=== PATIENT | female | born 1980 | race American Indian/Alaskan Native ===

== ENCOUNTER 2017-10-11 08:34 | Emergency (ER) | payer MEDICAID ==
[2017-10-11 08:45] VITALS: BP 127/76
[2017-10-11] MEDS ORDERED: MOTRIN PO ONE (10:48)
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
== END 2017-10-11 14:00 | disposition home or self-care (01) ==
LOC: ED 08:34
DX: S39.012A Strain of muscle, fascia and tendon of lower back, initial encounter (principal); S13.4XXA Sprain of ligaments of cervical spine, initial encounter; M25.562 Pain in left knee; D64.9 Anemia, unspecified; V89.2XXA Person injured in unspecified motor-vehicle accident, traffic, initial encounter; Y93.89 Activity, other specified; Y92.89 Other specified places as the place of occurrence of the external cause; Y99.8 Other external cause status
CPT/HCPCS: 99283

== ENCOUNTER 2017-12-05 23:36 | Emergency (ER) | payer MEDICAID ==
[2017-12-05 23:42] VITALS: BP 129/69
== END 2017-12-06 05:21 | disposition left against medical advice (07) ==
LOC: ED 23:36
DX: M79.644 Pain in right finger(s) (principal); Z53.21 Procedure and treatment not carried out due to patient leaving prior to being seen by health care provider

== ENCOUNTER 2017-12-10 09:20 | Emergency (ER) | payer MEDICAID ==
[2017-12-10 09:31] VITALS: BP 121/81
== END 2017-12-10 12:10 | disposition left against medical advice (07) ==
LOC: ED 09:20
DX: Z53.21 Procedure and treatment not carried out due to patient leaving prior to being seen by health care provider (principal)

== ENCOUNTER 2018-12-08 07:24 | Emergency (ER) | payer MEDICAID ==
[2018-12-08 07:37] VITALS: BP 130/79
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
[2018-12-08] MEDS ORDERED: TORADOL IM ONE (07:57)
--- NOTE | 2018-12-08 08:46 | XRay Report ---
LEFT SHOULDER RADIOGRAPHS INDICATION: Pain. COMPARISON: None similar. FINDINGS: Frontal and Y views of the left shoulder, 3 projections demonstrate normal humeral head contour, well positioned against the glenoid. Normal acromioclavicular joint. Preserved scapular contour. Normal visualized soft tissues, left ribs and lung. CONCLUSION: No acute left shoulder radiographic abnormality, as described. Thank you for the opportunity to participate in this patient's care.
== END 2018-12-08 09:37 | disposition home or self-care (01) ==
LOC: ED 07:24
DX: M54.12 Radiculopathy, cervical region (principal); M25.512 Pain in left shoulder; F17.200 Nicotine dependence, unspecified, uncomplicated; Z86.2 Personal history of diseases of the blood and blood-forming organs and certain disorders involving the immune mechanism; Z90.710 Acquired absence of both cervix and uterus
CPT/HCPCS: 73030; 93005; 93010; 96372; 99283; J1885

== ENCOUNTER 2019-02-17 11:00 | Outpatient (CLI) | payer MEDICAID | END 2019-02-17 11:01 | disposition home or self-care (01) | LOC: SLR 11:00 | PROVIDERS: ATTEND Otolaryngology | DX: G47.33 Obstructive sleep apnea (adult) (pediatric) (principal); R40.0 Somnolence; R06.83 Snoring; E66.9 Obesity, unspecified; Z90.710 Acquired absence of both cervix and uterus | CPT/HCPCS: G0399 ==

== ENCOUNTER 2019-07-08 08:31 | Emergency (ER) | payer MEDICAID ==
[2019-07-08 09:22] LABS: Bilirubin,Urine NEG (Negative); Blood,Urine NEG (Negative); Color,Urine Yellow (Yellow); Mucus,Urine FEW /HPF; Protein,Urine <15 mg/dL mg/dL (Negative); Urobilinogen,Urine < 2.0 mg/dL (<2.0)
[2019-07-08 10:36] LABS: Basophils # (Auto) 0.1 K/mm3 (0.0-0.1); Basophils % (Auto) 0.9 % (0.0-1.8); Eosinophils # (Auto) 0.1 K/mm3 (0.0-0.4); Hematocrit 39.5 % (30.3-42.9); Hemoglobin 12.9 gm/dl (10.1-14.3); Lymphocytes # (Auto) 1.8 K/mm3 (1.2-5.4); Lymphocytes % (Auto) 28.1 % (13.4-35.0); Mean Corpuscular HGB Conc 33 % (30-34); Mean Corpuscular Volume 82 fl (79-97); Monocytes # (Auto) 0.6 K/mm3 (0.0-0.8); Monocytes % (Auto) 8.9 % (0.0-7.3); Platelet Count 187 K/mm3 (140-440); Red Blood Count 4.83 M/mm3 (3.65-5.03); Red Cell Distribution Width 14.6 % (13.2-15.2)
[2019-07-08 10:55] LABS: BUN/Creatinine Ratio 11; Blood Urea Nitrogen 10 mg/dL (7-17); Calcium 8.7 mg/dL (8.4-10.2); Hemolysis Index 11
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
[2019-07-08 12:58] VITALS: BP 116/61
== END 2019-07-08 12:57 | disposition home or self-care (01) ==
LOC: ED 08:31
DX: R10.9 Unspecified abdominal pain (principal); R50.9 Fever, unspecified; R11.10 Vomiting, unspecified; D64.9 Anemia, unspecified; Z90.710 Acquired absence of both cervix and uterus
CPT/HCPCS: 36415; 80048; 81001; 85025; 87086

== ENCOUNTER 2021-10-12 00:09 | Emergency (ER) | payer MEDICAID ==
[2021-10-12] MEDS ORDERED: ASPIRIN EC 325 MG TAB PO ONE (00:31)
[2021-10-12 01:09] LABS: Basophils # (Auto) 0.1 K/mm3 (0.0-0.1); Basophils % (Auto) 1.1 % (0.0-1.8); Eosinophils # (Auto) 0.2 K/mm3 (0.0-0.4); Eosinophils % (Auto) 3.3 % (0.0-4.3); Hematocrit 40.5 % (30.3-42.9); Hemoglobin 12.7 gm/dl (10.1-14.3); Lymphocytes # (Auto) 2.8 K/mm3 (1.2-5.4); Lymphocytes % (Auto) 40.1 % (13.4-35.0); Mean Corpuscular HGB Conc 31 % (30-34); Mean Corpuscular Volume 83 fl (79-97); Monocytes # (Auto) 0.6 K/mm3 (0.0-0.8); Platelet Count 176 K/mm3 (140-440); Red Blood Count 4.87 M/mm3 (3.65-5.03); Red Cell Distribution Width 15.6 % (13.2-15.2)
--- NOTE | 2021-10-12 01:11 | XRay Report ---
XR chest routine 2V INDICATION / CLINICAL INFORMATION: chest pain, left lower leg pain. COMPARISON: 04/09/2019 FINDINGS: SUPPORT DEVICES: None. HEART /PULMONARY VASCULATURE: No significant abnormality. LUNGS / PLEURA: No significant pulmonary or pleural abnormality. No pneumothorax. ADDITIONAL FINDINGS: No significant additional findings. IMPRESSION: 1. No acute findings. Signer Name: Chris Guillen MD Signed: 10/12/2021 1:06 AM Workstation Name: [id number]
[2021-10-12 01:19] LABS: INR 0.89 (0.87-1.13)
[2021-10-12 01:20] LABS: Partial Thromboplastin Time 31.5 Sec. (24.2-36.6)
[2021-10-12 01:27] LABS: Alanine Aminotransferase 8 units/L (7-56); Albumin 3.8 g/dL (3.9-5); BUN/Creatinine Ratio 14; Blood Urea Nitrogen 11 mg/dL (7-17); Calcium 8.8 mg/dL (8.4-10.2); Hemolysis Index 4
--- NOTE | 2021-10-12 02:13 | Vascular Lab Report ---
DUPLEX DOPPLER LOWER EXTREMITY VEINS, LEFT INDICATION / CLINICAL INFORMATION: Left calf pain. TECHNIQUE: Duplex doppler imaging was performed through the veins of the left lower extremity using venous compr ession and other maneuvers. COMPARISON: None available. FINDINGS: LEFT COMMON FEMORAL VEIN: Negative. LEFT FEMORAL VEIN: Negative. LEFT POPLITEAL VEIN: Negative. LEFT CALF VEINS: Negative. ADDITIONAL FINDINGS: None. IMPRESSION: 1. No sonographic evidence for DVT in the left lower extremity. Signer Name: Chris Guillen MD Signed: 10/12/2021 2:08 AM Workstation Name: [id number]
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
[2021-10-12 02:59] VITALS: BP 117/63
--- NOTE | 2021-10-12 13:27 | Electrocardiograph Report ---
[facility] Test Date: 2021-10-12 Test Time: 00:20:38 Pat Name: CHAPARRO GONZALEZ Department: Room: Gender: F [employer]ator: : 1980 Requested By: MARIA ELENA MARTIN Order Number: [id number] Reading MD: Marie Ferro Measurements Intervals [place] Rate: 83 P: 72 GA: 163 QRS: 37 QRSD: 81 T: 50 QT: 379 QTc: 445 Interpretive Statements Sinus rhythm No previous ECG available for comparison Electronically Signed On 10-12-2021 13:26:48 EST by Marie Ferro
== END 2021-10-12 02:58 | disposition home or self-care (01) ==
LOC: ED 00:09
DX: S86.912A Strain of unspecified muscle(s) and tendon(s) at lower leg level, left leg, initial encounter (principal); M62.831 Muscle spasm of calf; F41.8 Other specified anxiety disorders; Z90.710 Acquired absence of both cervix and uterus
CPT/HCPCS: 36415; 71046; 80053; 84484; 85025; 85610; 85730; 93005; 99284

== ENCOUNTER 2022-03-23 02:49 | Emergency (ER) | payer MEDICAID ==
[2022-03-23 04:29] LABS: Basophils % (Auto) 0.4 % (0.0-1.8); Eosinophils # (Auto) 0.2 K/mm3 (0.0-0.4); Eosinophils % (Auto) 2.4 % (0.0-4.3); Hematocrit 41.5 % (30.3-42.9); Lymphocytes # (Auto) 2.9 K/mm3 (1.2-5.4); Lymphocytes % (Auto) 36.2 % (13.4-35.0); Mean Corpuscular HGB Conc 31 % (30-34); Mean Corpuscular Volume 84 fl (79-97); Monocytes # (Auto) 0.9 K/mm3 (0.0-0.8); Monocytes % (Auto) 11.1 % (0.0-7.3); Platelet Count 171 K/mm3 (140-440); Red Blood Count 4.96 M/mm3 (3.65-5.03); Red Cell Distribution Width 15.7 % (13.2-15.2)
[2022-03-23 04:49] LABS: Alanine Aminotransferase 10 units/L (7-56); Albumin 3.6 g/dL (3.9-5); BUN/Creatinine Ratio 14; Blood Urea Nitrogen 13 mg/dL (7-17); Calcium 8.7 mg/dL (8.4-10.2); Hemolysis Index 43
--- NOTE | 2022-03-23 04:52 | XRay Report ---
CHEST 2 VIEWS INDICATION / CLINICAL INFORMATION: Chest Pain. COMPARISON: Chest x-ray 10/12/2021 FINDINGS: SUPPORT DEVICES: None. HEART / MEDIASTINUM: No significant abnormality. LUNGS / PLEURA: No significant pulmonary or pleural abnormality. No pneumothorax. BONES: No significant osseous abnormality. ADDITIONAL FINDINGS: No significant additional findings. IMPRESSION: 1. No active cardiopulmonary disease. Signer Name: Juan Perry II, MD Signed: 03/23/2022 4:48 AM Workstation Name: [id number]
[2022-03-23 05:12] LABS: Bacteria,Urine 1+ /HPF (Negative); Bilirubin,Urine NEG (Negative); Blood,Urine NEG (Negative); Color,Urine Yellow (Yellow); Mucus,Urine FEW /HPF; Protein,Urine <15 mg/dL mg/dL (Negative); Urobilinogen,Urine < 2.0 mg/dL (<2.0)
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
[2022-03-23 07:16] VITALS: BP 126/87
--- NOTE | 2022-03-24 13:37 | Electrocardiograph Report ---
[facility] Test Date: 2022-03-23 Test Time: 03:00:59 Pat Name: CHAPARRO GONZALEZ Department: Room: Gender: F Associate Producer: SONYA : 1980 Requested By: FOREST ALVAREZ Order Number: [id number] Reading MD: Tony Danielle Measurements Intervals [place] Rate: 78 P: 80 [place]: 162 QRS: 26 QRSD: 78 T: 15 QT: 380 QTc: 432 Interpretive Statements Sinus rhythm Compared to ECG 10/12/2021 00:20:38 No significant changes Electronically Signed On 03-24-2022 13:37:29 EDT by Tony Danielle
== END 2022-03-23 07:16 | disposition home or self-care (01) ==
LOC: ED 02:49
DX: R07.89 Other chest pain (principal); R06.02 Shortness of breath; R60.9 Edema, unspecified; Z98.890 Other specified postprocedural states; Z79.899 Other long term (current) drug therapy
CPT/HCPCS: 36415; 71046; 80053; 81001; 83880; 84484; 85025; 93005; 99284

== ENCOUNTER 2022-05-02 01:30 | Emergency (ER) | payer MEDICAID ==
[2022-05-02 01:49] VITALS: BP 129/81
== END 2022-05-02 05:30 | disposition left against medical advice (07) ==
LOC: ED 01:30
DX: R13.10 Dysphagia, unspecified (principal); Z53.21 Procedure and treatment not carried out due to patient leaving prior to being seen by health care provider

== ENCOUNTER 2022-05-04 02:26 | Emergency (ER) | payer MEDICAID ==
[2022-05-04] MEDS ORDERED: predniSONE 20 MG TAB PO ONE (08:51)
[2022-05-04] MEDS ORDERED: diphenhydrAMINE 25 MG CAP PO ONE (08:51)
[2022-05-04] MEDS ORDERED: FAMOTIDINE 20 MG TAB PO ONE (08:51)
--- NOTE | 2022-05-04 09:23 | XRay Report ---
CHEST 2 VIEWS INDICATION / CLINICAL INFORMATION: palpitations. COMPARISON: 03/23/22 FINDINGS: SUPPORT DEVICES: None. HEART / MEDIASTINUM: No significant abnormality. LUNGS / PLEURA: No significant pulmonary or pleural abnormality. No pneumothorax. ADDITIONAL FINDINGS: No significant additional findings. IMPRESSION: 1. No acute findings. No change. Signer Name: Marcell Peguero MD Signed: 05/04/2022 9:19 AM Workstation Name: [id number]
[2022-05-04 10:31] LABS: Basophils % (Auto) 0.3 % (0.0-1.8); Eosinophils # (Auto) 0.2 K/mm3 (0.0-0.4); Hematocrit 44.2 % (30.3-42.9); Hemoglobin 14.2 gm/dl (10.1-14.3); Lymphocytes # (Auto) 2.7 K/mm3 (1.2-5.4); Lymphocytes % (Auto) 35.7 % (13.4-35.0); Mean Corpuscular HGB Conc 32 % (30-34); Mean Corpuscular Volume 83 fl (79-97); Monocytes # (Auto) 0.9 K/mm3 (0.0-0.8); Monocytes % (Auto) 12.1 % (0.0-7.3); Platelet Count 173 K/mm3 (140-440); Red Blood Count 5.36 M/mm3 (3.65-5.03); Red Cell Distribution Width 14.5 % (13.2-15.2)
[2022-05-04] MEDS ORDERED: SODIUM CHLORIDE 0.9% 1000 ML 1,000 ML IV ONE (10:38)
[2022-05-04] MEDS ORDERED: ONDANSETRON 4 MG/2 ML INJ IV ONE (10:39)
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
[2022-05-04 10:56] LABS: Alanine Aminotransferase 9 units/L (7-56); Albumin 4.2 g/dL (3.9-5); BUN/Creatinine Ratio 10; Blood Urea Nitrogen 9 mg/dL (7-17); Calcium 8.8 mg/dL (8.4-10.2); Hemolysis Index 3
[2022-05-04 12:42] VITALS: BP 126/86
--- NOTE | 2022-05-04 21:41 | Electrocardiograph Report ---
[facility] Test Date: 2022-05-04 Test Time: 02:42:03 Pat Name: CHAPARRO GONZALEZ Department: Room: Gender: F Erosion Control Coordinator: NIRALI Sr : 1980 Requested By: RAHEEL MADERA Order Number: [id number] Reading MD: Tony Danielle Measurements Intervals [place] Rate: 67 P: 67 [place]: 182 QRS: 13 QRSD: 79 T: 38 QT: 405 QTc: 429 Interpretive Statements Sinus rhythm Compared to ECG 03/23/2022 03:00:59 No significant changes Electronically Signed On 05-04-2022 21:40:46 EDT by Tony Danielle
== END 2022-05-04 12:49 | disposition home or self-care (01) ==
LOC: ED 02:26
DX: T78.40XA Allergy, unspecified, initial encounter (principal); R00.2 Palpitations; D64.9 Anemia, unspecified; Z90.710 Acquired absence of both cervix and uterus; Z98.890 Other specified postprocedural states; X58.XXXA Exposure to other specified factors, initial encounter
CPT/HCPCS: 36415; 71046; 80053; 84484; 85025; 93005; 96361; 96374; 99284; J2405; J7030